=== PATIENT | female | born 1995 | race Caucasian/White ===

== ENCOUNTER 2018-02-26 15:56 | Day surgery (SDC) | payer OTHER ==
[2018-02-26 16:22] VITALS: BMI 39.0
[2018-02-26 16:23] VITALS: BP 134/78; TEMP 98.5
--- NOTE | 2018-02-26 16:37 | PDOC.FPROB ---
FMR OB H&P: HPI - History of Present Illness Chief Complaint: Elevated BP Indentification: 23 yo @ 30.1 weeks by 11.3 wk US (ZACHARY 05/06/18) History of Present Illness: Patient is a 23 year old female with a history of chronic hypertension, untreated who was sent over from her PCP's office due to concern for elevated BP. Pt denies headache and vision changes currently, but reports ONEAL unresponsive to Tylenol yesterday. She denies abdominal pain, LOF, Vaginal bleeding, and decrease in movement. BP at clinic was 157/78 and 142/91. Pt was started on Nifedipine 30 mg ER earlier in her , but self- discontinued it because she "did not like the way it made her feel." Has had a recent negative pre-e workup in clinic earlier this month, of note. Primary Care Physician: Thelma Mota DO FMR OB H&P: Current - Care : 3 Para: 2 Gestational age: 30.1 Due date: 05/06/2018 Dating Criteria: 11.3 week US - OB Labs Blood type: O RH: positive Antibody Screen: negative HIV: negative RPR: negative HepBsAg: negative Rubella: immune Quad screen: unknown Urine drug screen: not done Gonorrhea: negative Chlamydia: negative 1 hour gtt: None H&H: 13.8/40.9 FMR OB H&P: History - Past Medical History PMH: Hypertension - OB History OB History: Gestational HTN in prior - on ASA for pre-e prophylaxis. 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 Most recent pap was 12/2017. - Surgical History Sx History: Denies tobacco, alcohol, and drug use. - Family History Family History: Father - Hypertension FMR OB H&P: Medications - Current Home Medications: Medication Instructions Recorded Confirmed Type Aspirin [Aspirin Chewable Tablet] 1 tab PO MWF 02/26/18 02/26/18 History Iron Aspgly&PS Cmplx/C/Sucac 1 tab PO DAILY 02/26/18 02/26/18 History [Ferrex 150 Plus] 105/Iron/Folic AC/Dha 1 tab PO DAILY 09/25/18 09/25/18 History [Prena1 True Combo Pack] Allergies/Adverse Reactions: Allergies Allergy/AdvReac Type Severity Reaction Status Date / Time No Known Allergies Allergy Verified 02/26/18 16:16 FMR OB H&P: ROS - Review of Systems General: denies: fever/chills Eyes: denies: vision changes Cardiovascular: denies: chest pain Respiratory: denies: shortness of breath Gastrointestinal: denies: abdominal pain Genitourinary (Female): denies: vaginal bleeding Musculoskeletal: denies: swelling Neurologic: denies: headache FMR OB H&P: Vital Signs - Maternal Vital signs: Vital Signs - First Documented Temp Pulse Resp BP Pulse Ox 98.5 F 102 H 18 134/78 100 02/26/18 16:14 02/26/18 16:14 02/26/18 16:14 02/26/18 16:14 02/26/18 16:14 FMR OB H&P: Physical Exam - Physical Exam General: NAD HEENT: EOMI, grossly normal hearing Heart: RRR General: CTAB Abdomen: soft, gravid, non-tender Musculoskeletal: pulses present Neurological: cranial nerves II through XII intact, DTR +2 Skin: no rash - Pelvic Exam Estimated Weight: 6 lbs FMR OB H&P: A/P - Problem List (1) Intrauterine Current Visit: Yes Status: Acute Code(s): Z34.90 - ENCNTR FOR SUPRVSN OF NORMAL , UNSP, UNSP TRIMESTER (2) Chronic hypertension during , antepartum Current Visit: Yes Status: Acute Code(s): O10.919 - UNSP PRE-EXISTING HTN COMP , UNSP TRIMESTER Disposition: Term IUP with history of chronic hypertension. Concern for super-imposed Pre-e. -CBC, CMP, TSH, Uric acid ordered and are pending. BPP and Growth US ordered to r/o IUGR. - heart tones pending as patient currently getting US, but will monitor to ensure that strip is reactive. - Will continue to monitor BPs for a period of at least 2 hours. If BPs consistently remain < 140/90 will admit patient to L&D for observation overnight. Discussion: Date/Time: 02/26/18 3146 This H&P was discussed with Dr. English who agreed with the plan
[2018-02-26 16:43] LABS: #Lymphocytes 1.7 thou/uL (1.20-3.40); %Basophils 0.2 % (0.0-1.0); %Eosinophils 0.6 % (0.0-10.0); %Lymphocytes 19.1 % (21.0-51.0); %Monocytes 11.1 % (0.0-10.0); Hemoglobin 10.2 g/dL (12.0-16.0); Mean Corpuscular HGB CONC 33.2 g/dL (32.0-36.0); Mean Corpuscular Hemoglobin 27.2 pg (27.0-31.0); Mean Corpuscular Volume 82.1 fL (78.0-98.0); Mean Platelet Volume 7.1 fL (7.4-10.4); Platelet Count 267 thou/uL (130-400); RBC Distribution Width 14.3 % (11.5-14.5); Red Blood Cell (RBC) Count 3.73 mill/uL (4.20-5.40); White Blood Cell (WBC) Count 8.6 thou/uL (4.8-10.8)
[2018-02-26 17:05] LABS: ALT (SGPT) 9 U/L (8-55); AST (SGOT) 21 U/L (5-34); Albumin 3.2 g/dL (3.5-5.0); Alkaline Phosphatase 99 U/L (40-150); Anion Gap 11 mmol/L (10-20); BUN (Urea Nitrogen) 7 mg/dL (7.0-18.7); Bilirubin, Total 0.4 mg/dL (0.2-1.2); Calc. Creatinine Clearance 191 mL/min (70-130); Calcium 8.7 mg/dL (7.8-10.44); Carbon Dioxide 23 mmol/L (22-29); Chloride 107 mmol/L (98-107); Estimated GFR-MDRD Greater than 90; Globulin 2.8 g/dL (2.4-3.5); Glucose 80 mg/dL (70-105); Potassium 3.5 mmol/L (3.5-5.1); Sodium 137 mmol/L (136-145); Uric Acid 3.4 mg/dL (2.6-6.0)
--- NOTE | 2018-02-26 17:44 | ULT ---
ULTRASOUND BIOPHYSICAL PROFILE: 02/26/18 HISTORY: 23-year-old female in third trimester with gestational hypertension. FINDINGS: breathin tone: 2 movement: 2 Amniotic fluid volume: 2 IMPRESSION: Normal biophysical profile score of 8/8, excluding the non-stress test. erica [] POS: HORTENCIA
--- NOTE | 2018-02-26 18:00 | ULT ---
ULTRASOUND OBSTETRICAL COMPLETE: 02/26/18 HISTORY: 23-year-old female in third trimester with gestational hypertension. Concern for intrauterin e growth retardation. FINDINGS: number: Gomez. lie: Cephalic. Maternal cervix: Poorly visualized. Placenta: Posterofundal. Amniotic fluid volume: LUCIA=12.5 cm. heart rate: 114-128 bpm The following anatomy is visualized, with no evidence of anomalies: Head, stomach, cord insertion, bladder, and spine. The rest of the anatomy is not demonstrated in detail. biometry: Head circumference (HC): 29.3 cm 32w 3d Biparietal diameter (BPD): 8.0 cm 32w 0d Abdominal circumference (AC): 27.5 cm 31w 4d Femur length (FL): 5.9 cm 30w 6d Average ultrasound age (AUA): 31w 4d Estimated date of delivery (ZACHARY): 04/26/18 Last menstrual period (LMP): 07/24/2017 Gestational age by LMP: 31w 0d Estimated weight (EFW): 1774 g +/- 263 g (3 lb, 15 oz +/- 9 oz). Umbilical artery velocities: At placenta: Peak systolic 78 cm/s. End diastolic 28 cm/s. S/D = 2.8. Mid: Peak systolic 97 cm/s. End diastolic 53 cm/s. S/D = 1.9. side: Peak systolic 48 cm/s. End diastolic 14 cm/s. S/D = 3.5. IMPRESSION: 1. Live third trimester intrauterine gestation. 2. Estimated gestational age of 31 weeks, 4 days. 3. Cephalic lie. JONNY Calixto POS: HORTENCIA
--- NOTE | 2018-02-26 18:04 | ULT ---
ULTRASOUND UMBILICAL ARTERY DOPPLER DUPLEX: 02/26/18 HISTORY: 23-year-old female in third trimester of with gestational hypertension. TECHNIQUE: Color flow and spectral analysis of the umbilical artery at three locations: FINDINGS: Near placenta: Peak systolic 78 cm/s. End diastolic 28 cm/s. S/D = 2.8. Mid: Peak systolic 97 cm/s. End diastolic 53 cm/s. S/D = 1.9. Near cord insertion: Peak systolic 48 cm/s. End diastolic 14 cm/s. S/D = 3.5. IMPRESSION: Umbilical artery Doppler S/D ratios are within normal range. POS: KEREN
[2018-02-26 18:32] LABS: Amphetamine Not Detected (NotDetected); Barbiturates Screen Not Detected (NotDetected); Benzodiazepine Screen Not Detected (NotDetected); Cocaine Metabolite Screen Not Detected (NotDetected); Medtox Control Line Valid? VALID (VALID); Medtox Reader # READER 1; Methadone Not Detected (NotDetected); Methamphetamine Not Detected (NotDetected); Opiate Screen Not Detected (NotDetected); Oxycodone Screen Not Detected (NotDetected); Phencyclidine (PCP) Not Detected (NotDetected); THC/Cannabinoid Screen Not Detected (NotDetected); Tricyclic Screen Not Detected (NotDetected)
[2018-02-26 18:43] LABS: Creatinine, Urine 98.73 mg/dL (47-110)
--- NOTE | 2018-02-26 19:36 | PDOC.EVN ---
Event Note - Event Note Event Note: Patient labs are all in normal range, uric acid 3.4, p:c 0.18, BPP: 8/8 She did have elevated BP of 145/92 at 17:10 and 135/92 at 18:40. All others were normal range. Asymptomatic at this time (no ONEAL, scotoma, hyperreflexia, edema). Discussed case with Dr. Callejas, recommended she check BP at home and let us know if she has full day ONEAL. F/U in [address] Mota at [facility].
== END 2018-02-26 19:30 | disposition home or self-care (01) ==
LOC: L&D/OP 15:56
PROVIDERS: ATTEND Student in an Organized Health Care Education/Training Program
DX: O10.013 Pre-existing essential hypertension complicating pregnancy, third trimester (principal); Z3A.30 30 weeks gestation of pregnancy; Z79.82 Long term (current) use of aspirin; Z79.899 Other long term (current) drug therapy
CPT/HCPCS: 36415; 76700; 76815; 76819; 80053; 80306; 82570; 84156; 84443; 84550; 85025; 99285

== ENCOUNTER 2018-05-01 20:00 | Inpatient (IN) | payer OTHER ==
[2018-05-02] MEDS ORDERED: Promethazine HCl 25 MG/ML VIAL IM PRN (01:06)
[2018-05-02] MEDS ORDERED: Lidocaine 1% (PF) 30 ML VIAL SC PRN (01:06)
[2018-05-02] MEDS ORDERED: Ibuprofen 800 MG TAB PO PRN (01:06)
[2018-05-02] MEDS ORDERED: Ondansetron PF 4 MG/2 ML Vial IVP PRN (01:06)
[2018-05-02] MEDS ORDERED: NS w/ Oxytocin 10 units 500 ML IV SCH (01:15)
[2018-05-02 01:24] VITALS: BMI 40.6
--- NOTE | 2018-05-02 01:30 | PDOC.LDHP ---
Labor and Delivery H&P Chief complaint: scheduled induction HPI: 23YO at 41 weeks by LMP and 24.3 week sono who presented to L&D for a scheduled medically indicated induction for cHTN in . The patient was late to care and was not seen in clinic until her second trimester. She states she is a little anxious because she usually delivers fairly quickly. She denies any loss of fluid, vaginal bleeding or discharge but does endorse "losing her mucus plug" about 4-5 days ago. She said when she wiped she noticed some white/montero slimy discharge on the toilet paper. She endorses usual ached and pains in her back and sides but denies feeling any contractions. She also denies any headaches, SOB, chest pain, or LE swelling. She did report an episode of spotty vision earlier today but states that has resolved. Current gestational age (weeks): 41 Due date: 04/25/18 Dating criteria: last menstrual period, second trimester ultrasound (@ 24.3 weeks) Grav: 3 Para: 2 (2001) OB History Details: Late to care cHTN Possible h/o pre-eclampsia anemia in h/o UTI in Current complications: hypertension Abnormal US findings: No Current medications: pre-rashad vitamins, iron, other (ASA 81mg QD) Previous surgical history: other (tonsillectomy and oral surgery) Social history: other (quit smoking about 6 weeks ago, no drug or EtOH use) - Physical Exam Vital signs reviewed and normal: yes General: NAD, resting Heart: RRR Lungs: nonlabored breathing Abdomen: NTTP Extremeties: no edema FHT: category 1, variability present [place] contractions every: no contractions noted - Vaginal Exam cm dilated: 3 (3.5) Effacement: 25% (30%) Station: -3 - OB Labs Blood type: O RH: positive Antibody Screen: negative HIV: negative RPR: negative HEPSAg: negative 1 hour GCT: negative (BG 120) GBS: unknown Urine drug screen: negative Rubella: immune Additional Labs: A1c- 4.8 GC/Chlamydia - negative - Assessment L&D Assessment: medically indicated induction - Plan Plan: admit to L&D, cervical ripening, labor augmentation if indicated, informed consent obtained -: Post-term sIUP @ 41 weeks: - Will admit to L&D for medically indicated induction for chronic HTN. - Will keep a close eye on vitals with regular vital checks. - Cervical check @ 02:30 was 3.5/30/-3 - Will make NPO and start on IVFs. - Will give one dose of 25mcg of cytotec for labor augmentation. - Will continue to monitor baby closely with continuous monitoring. cHTN: - BP not in range requiring medical therapy since arrival. SBP in 130s-140s. - Will continue to monitor BP closely w/ regular vital checks. Anemia in : - Aware, will resume PO iron after delivery. <Muna Thorne - Last Filed: 05/02/18 06:16> <Marcos Roman - Last Filed: 05/02/18 08:52> Allergies/Adverse Reactions: Allergies Allergy/AdvReac Type Severity Reaction Status Date / Time No Known Allergies Allergy Verified 05/02/18 01:06 Attending Addendum - Attending Addendum Date/Time: 05/02/18 0852 I personally evaluated the patient and discussed the management with Dr. Elias. I agree with and repeated the History, Examination, Assessment and Plan documented above with any addition or exceptions noted below. <Marcos Roman - Last Filed: 05/02/18 08:52>
[2018-05-02] MEDS: Misoprostol 100 MCG TAB VAG SCH ×4 (02:24→16:38)
[2018-05-02 02:40] LABS: Hemoglobin 9.6 g/dL (12.0-16.0); Mean Corpuscular HGB CONC 33.4 g/dL (32.0-36.0); Mean Corpuscular Hemoglobin 25.4 pg (27.0-31.0); Mean Platelet Volume 8.5 fL (7.4-10.4); Platelet Count 256 thou/uL (130-400); RBC Distribution Width 15.9 % (11.5-14.5); Red Blood Cell (RBC) Count 3.75 mill/uL (4.20-5.40); White Blood Cell (WBC) Count 7.5 thou/uL (4.8-10.8)
[2018-05-02] MEDS ORDERED: Calcium Carbonate 500 MG ChewTAB PO PRN (03:09)
[2018-05-02 03:25] LABS: HBSAg Index 0.18 S/CO (0-0.99); HIV (1/2) Antibody/Antigen Non-Reactive (NonReactive); HIV 1/2 INDEX 0.17 S/CO (<1.00); Hep B Surf Ag Non-Reactive S/CO (NonReactive)
[2018-05-02 03:38] LABS: ALT (SGPT) 15 U/L (8-55); AST (SGOT) 23 U/L (5-34); Albumin 3.3 g/dL (3.5-5.0); Alkaline Phosphatase 197 U/L (40-150); Anion Gap 16 mmol/L (10-20); BUN (Urea Nitrogen) 7 mg/dL (7.0-18.7); Bilirubin, Total 0.4 mg/dL (0.2-1.2); Calc. Creatinine Clearance 256 mL/min (70-130); Calcium 8.9 mg/dL (7.8-10.44); Carbon Dioxide 21 mmol/L (22-29); Chloride 106 mmol/L (98-107); Estimated GFR-MDRD Greater than 90; Glucose 100 mg/dL (70-105); Protein, Total 6.3 g/dL (6.0-8.3); Sodium 139 mmol/L (136-145)
[2018-05-02 04:44] LABS: Syphilis Antibody Nonreactive (Nonreactive); Syphilis Antibody Index 0.05 S/CO (<1.00 Non-Reactive)
[2018-05-02] MEDS ORDERED: Butorphanol Tartrate 1 MG/ML VIAL SLOW IVP PRN ×2 (05:33→06:23)
[2018-05-02 06:08] LABS: Creatinine, Urine 78.61 mg/dL (47-110)
--- NOTE | 2018-05-02 06:08 | PDOC.LDPN ---
Labor & Delivery Progress Note - Subjective Subjective: painful contractions - Objective Abnormal vital signs: BP 157/71 & HR 83 General: breathing through contractions Dilation: 4 Effacement: 25% (40%) Station: -2 FHT: category 1, variability present [place] contractions every: 1-2 minutes Resuscitative measures: maternal IV fluids - Assessment (1) Anemia Code(s): D64.9 - ANEMIA, UNSPECIFIED Current Visit: Yes Status: Acute (2) Late care Code(s): O09.30 - SUPRVSN OF PREG W INSUFFICIENT ANTENAT CARE, UNSP TRIMESTER Current Visit: Yes Status: Acute (3) Chronic hypertension during , antepartum Code(s): O10.919 - UNSP PRE-EXISTING HTN COMP , UNSP TRIMESTER Current Visit: No Status: Acute (4) Intrauterine Code(s): Z34.90 - ENCNTR FOR SUPRVSN OF NORMAL , UNSP, UNSP TRIMESTER Current Visit: No Status: Acute Plan: continue plan of care -: Post-dates sIUP # 41 weeks by LMP & 24.6 week sono: - [place] every 1-2 minutes after 25mcg of intravaginal cytotec around ~02: 30. Tristian too frequently for medical labor augmentation at this time. - Cervical check significant for small change at 4/40/-2. - FHTs reassuring w/ a baseline HR in the 130s & variability present. - Will order 1mg of stadol Q1H PRN for pain control as patient does not desire an epidural. - Will continue to monitor closely with continuous monitoring and regular vital checks. cHTN in : - Aware, patient has had 2 severe range pressures at 160/100 & 150/100. Could be 2/2 pain as contractions have become more frequent. - Patient denies any symptoms suggestive of pre-e including headache, spotty vision, chest pain, or SOB. - CMP & platelets WNLs and urine protein:Cr 0.15 so WNLs as well. - Will continue to monitor BP closely w/ regular vital checks and assess for pre -e symptoms as mentioned above. Anemia in : - Aware, Hgb of 9.6 on admission. - Will resume Iron and . <Muna Thorne - Last Filed: 05/02/18 06:21> Attending Addendum - Attending Addendum Date/Time: 05/02/18 0853 I personally evaluated the patient and discussed the management with Dr. Elias. I agree with the History, Examination, Assessment and Plan documented above with any addition or exceptions noted below. If persistent elevations send labs and tx as appropriately for possible superimposed preE. <Marcos Roman - Last Filed: 05/02/18 08:53>
--- NOTE | 2018-05-02 08:48 | PDOC.LDPN ---
Labor & Delivery Progress Note - Subjective Subjective: painful contractions - Objective Vital signs reviewed and normal: yes General: NAD Uterine fundus: palpable contractions SVE: 5/70/-1/anterior FHT: category 1 [place] contractions every: q2 minutes - Assessment (1) Intrauterine Code(s): Z34.90 - ENCNTR FOR SUPRVSN OF NORMAL , UNSP, UNSP TRIMESTER Current Visit: No Status: Acute Comment: s/p cytotec x1; progressing well. Continue expectant management (2) Chronic hypertension during , antepartum Code(s): O10.919 - UNSP PRE-EXISTING HTN COMP , UNSP TRIMESTER Current Visit: No Status: Acute Comment: Intermittent severe range BP; Pre- E labs normal; suspect related to pain. Contonue to monitor; Will treat with labetolol if persistent
[2018-05-02] MEDS: Lactated Ringer's 1,000 ML IV SCH ×2 (09:45→12:40)
--- NOTE | 2018-05-02 11:17 | PDOC.LDPN ---
Addendum entered and electronically signed by Bart Farley DO 05/02/18 11:22: blood pressure in acceptable range, continue to monitor Original Note: Labor & Delivery Progress Note - Subjective Subjective: painful contractions - Objective Vital signs reviewed and normal: yes (d) General: NAD Uterine fundus: non tender Dilation: 6 Effacement: 50% Station: -2 FHT: category 1 (baseline 140, accelerations present, moderate variability), variability present [place] contractions every: 5 mins AROM: clear fluid - Assessment (1) Intrauterine Code(s): Z34.90 - ENCNTR FOR SUPRVSN OF NORMAL , UNSP, UNSP TRIMESTER Current Visit: No Status: Acute Comment: s/p cytotec x1 inconsistent contraction pattern. progressing well. AROM clear fluid. Continue expectant management Plan: continue plan of care
[2018-05-02] MEDS: NS / Oxytocin 40 units/1000ml 1,000 ML IV PRN ×2 (11:56→13:47)
--- NOTE | 2018-05-02 12:48 | PDOC.OPDEL ---
OB Operative/Delivery Note Delivery Dr/Surgeon: Martin [place], [place] Pre-Delivery Diagnosis: active labor Procedure/Post Delivery Dx: spontaneous vaginal delivery Weeks gestation: 41 Anesthesia: none - Findings A Sex: male - 1 min: 8 - 5 min: 9 - Additional Findings/Plan Placenta delivered: spontaneous Repaired Obstetrical Laceration: none Estimated blood loss: QBL 50 Compilations/Other Findings: This is 23 yo F @ 41wks who delivered a viable M infant at 1153 on 05/02. Following an uneventful antepartum course, a vigorous male was delivered over an intact perineum in the occipitoanterior position. Anterior Shoulder and then remainder of the body delivered. nuchal cordx1. The head was held down and mouth and nares were bulb suctioned. Cord clamped (after delayed cord clamping) and cut and cord blood collected. Placenta delivered intact (in the Junior presentation) with a 3 vessel cord noted. Fundal massage was performed and the fundus was firm. The cervix and vagina were inspected and found to be free of lacerations. went to nursery in good condition for routine care. Apgars were 8/9 at 1 & 5 minutes, respectively. Patient tolerated delivery well and went to after routine recovery/care. Post delivery plan: routine recovery <Bart Farley - Last Filed: 05/02/18 12:47> Attending Addendum - Attending Addendum Date/Time: 05/02/18 1318 I was present, assisted, and supervised the of a viable male infant over an intact perineum. Apgars 8/9. Placenta delivered spontaneously and intact. 3V cord. No epis or lacerations. QBL 50 mL. Residents: Miguelito/Martin <Carina Haines - Last Filed: 05/02/18 13:20>
[2018-05-02] MEDS ORDERED: Bisacodyl 10 MG SUPP PR PRN (13:48)
[2018-05-02] MEDS ORDERED: NS / Oxytocin 40 units/1000ml 1,000 ML IV SCH (13:48)
[2018-05-02] MEDS ORDERED: Misoprostol 200 MCG TAB VAG PRN (13:48)
[2018-05-02] MEDS ORDERED: Milk Of Magnesia 30 ML UDCUP PO PRN (13:48)
[2018-05-02] MEDS ORDERED: Adacel (T-DAP) 0.5 ML VIAL IM ONE (13:48)
[2018-05-02] MEDS ORDERED: Methylergonovine 0.2 MG TAB PO PRN (13:48)
[2018-05-02] MEDS: Ibuprofen 800 MG TAB PO SCH ×2 (14:28→21:20)
[2018-05-02] MEDS: Ferrous Sulfate 325 MG TAB PO SCH (18:01)
[2018-05-02] MEDS: Docusate Calcium (SURFAK) 240 MG CAP PO SCH (21:20)
[2018-05-03] MEDS: Ibuprofen 800 MG TAB PO SCH ×3 (05:17→21:00)
[2018-05-03 06:22] LABS: Hemoglobin 9.6 g/dL (12.0-16.0); Mean Corpuscular HGB CONC 32.1 g/dL (32.0-36.0); Mean Corpuscular Hemoglobin 24.7 pg (27.0-31.0); Mean Corpuscular Volume 76.8 fL (78.0-98.0); Mean Platelet Volume 8.2 fL (7.4-10.4); Platelet Count 249 thou/uL (130-400); RBC Distribution Width 15.6 % (11.5-14.5); Red Blood Cell (RBC) Count 3.91 mill/uL (4.20-5.40); White Blood Cell (WBC) Count 9.9 thou/uL (4.8-10.8)
--- NOTE | 2018-05-03 06:42 | PDOC.PP ---
Post Progress Note Post Day #: 1 Subjective: Ms. Martin is resting comfortably in bed, reports minimal pain and bleeding. desires to go home today. PO intake tolerated: yes Flatus: yes Ambulation: yes Vital Signs (12 hours) Temp Pulse Resp BP BP Pulse Ox 05/03/18 04:40 97.2 F L 73 20 141/97 H 149/102 H 05/03/18 00:00 97.8 F 87 18 134/81 05/02/18 21:28 82 140/94 H 05/02/18 20:00 97.2 F L 62 16 157/98 H 99 Weight Weight 97.522 kg - Physical Examination General: NAD Cardiovascular: no m/r/g, RRR Respiratory: clear to auscultation bilaterally Neurological: no gross focal deficits Result Diagrams: 05/03/18 06:00 05/02/18 02:00 Additional Labs: Post Labs Blood Type O POSITIVE 05/02/18 02:00 Hep Bs Antigen Non-Reactive S/CO (NonReactive) 05/02/18 02:00 (1) Intrauterine Code(s): Z34.90 - ENCNTR FOR SUPRVSN OF NORMAL , UNSP, UNSP TRIMESTER Status: Acute - Assessment/Plan s/p IUP, [id number] @ 41 wks 05/02/18 1153 - GBS unknown, limited care - atraumatic delivery, viable boy - Hb stable, continue PNV - recovering appropriately, continue to encourage - Continue routine care Dispo: unknown GBS, 48hr monitor preferred, discussion about DC today <Bart Farley - Last Filed: 05/03/18 08:32> Vital Signs (12 hours) Temp Pulse Resp BP BP Pulse Ox 05/03/18 08:16 98.3 F 91 20 146/86 H 99 05/03/18 04:40 97.2 F L 73 20 141/97 H 149/102 H 05/03/18 00:00 97.8 F 87 18 134/81 Weight Weight 97.522 kg Result Diagrams: 05/03/18 06:00 05/02/18 02:00 Additional Labs: Post Labs Blood Type O POSITIVE 05/02/18 02:00 Hep Bs Antigen Non-Reactive S/CO (NonReactive) 05/02/18 02:00 (1) Intrauterine Code(s): Z34.90 - ENCNTR FOR SUPRVSN OF NORMAL , UNSP, UNSP TRIMESTER Status: Acute (2) Chronic hypertension during , antepartum Code(s): O10.919 - UNSP PRE-EXISTING HTN COMP , UNSP TRIMESTER Status : Acute Comment: Intermittent severe range BP; Pre-E labs normal; suspect related to pain. Contonue to monitor; Will treat with labetolol if persistent <Carina Haines - Last Filed: 05/03/18 10:30> Attending Addendum - Attending Addendum Date/Time: 05/03/18 1024 I personally evaluated the patient and discussed the management with Dr. Farley I agree with the History, Examination, Assessment and Plan documented above with any addition or exceptions noted below- Patient without complaints. Ambulating/voiding. Afebrile VSS. A/P: 1) PPD#1 s/p - continue routine care. 2) cHTN- continue to monitor BP; IF persistent start meds this afternoon. <Carina Haines - Last Filed: 05/03/18 10:30>
[2018-05-03] MEDS: Docusate Calcium (SURFAK) 240 MG CAP PO SCH ×2 (09:04→21:00)
[2018-05-03] MEDS: Ferrous Sulfate 325 MG TAB PO SCH ×2 (09:04→18:02)
[2018-05-03] MEDS: Prenatal Vitamin 1 TAB PO SCH (09:04)
[2018-05-04] MEDS: Ibuprofen 800 MG TAB PO SCH (05:55)
--- NOTE | 2018-05-04 06:19 | PDOC.PP ---
Post Progress Note Post Day #: 2 Subjective: mom is resting comfortably in bed, well, minimal bleeding. denies SOB, CP, ONEAL, scomata PO intake tolerated: yes Flatus: yes Ambulation: yes Vital Signs (12 hours) Temp Pulse Resp BP BP Pulse Ox 05/04/18 05:45 98.8 F 76 18 136/85 05/04/18 00:00 98.0 F 83 18 138/93 H 05/03/18 20:00 98.0 F 78 16 148/87 H 99 Weight Weight 97.522 kg - Physical Examination General: NAD Cardiovascular: no m/r/g, RRR Respiratory: clear to auscultation bilaterally Abdominal: no distention, appropriately TTP Neurological: no gross focal deficits Result Diagrams: 05/03/18 06:00 05/02/18 02:00 Additional Labs: Post Labs Blood Type O POSITIVE 05/02/18 02:00 Hep Bs Antigen Non-Reactive S/CO (NonReactive) 05/02/18 02:00 (1) Intrauterine Code(s): Z34.90 - ENCNTR FOR SUPRVSN OF NORMAL , UNSP, UNSP TRIMESTER Status: Acute - Assessment/Plan s/p IUP, [id number] @ 41 wks 05/02/18 1153 - GBS unknown, limited care - atraumatic delivery, viable boy - Hb stable, continue PNV - recovering appropriately, continue to encourage - Continue routine care cHTN - continue to monitor BPs - consider starting nifedipine 20 XR if pressures remain elevated Dispo: DC home today <Bart Farley - Last Filed: 05/04/18 07:49> Vital Signs (12 hours) Temp Pulse Resp BP Pulse Ox 05/04/18 12:02 97.8 F 86 18 116/62 05/04/18 09:00 97.7 F 78 14 165/93 H 98 05/04/18 05:45 98.8 F 76 18 136/85 Weight Weight 97.522 kg Result Diagrams: 05/03/18 06:00 05/02/18 02:00 Additional Labs: Post Labs Blood Type O POSITIVE 05/02/18 02:00 Hep Bs Antigen Non-Reactive S/CO (NonReactive) 05/02/18 02:00 <Madina Nichole - Last Filed: 05/04/18 13:53> Attending Addendum - Attending Addendum Date/Time: 05/04/18 5428 I personally evaluated the patient and discussed the management with Dr. Farley I agree with the History, Examination, Assessment and Plan documented above with any addition or exceptions noted below. Stable PPD #2 Meeting appropriate milestones BP normotensive or mild range and pt is asymptomatic Followup in 3 days for BP check Stable for d/c to home today <Madina Nichole - Last Filed: 05/04/18 13:53>
[2018-05-04] MEDS: Ferrous Sulfate 325 MG TAB PO SCH (09:02)
[2018-05-04] MEDS: Docusate Calcium (SURFAK) 240 MG CAP PO SCH (09:02)
[2018-05-04] MEDS: Prenatal Vitamin 1 TAB PO SCH (09:02)
[2018-05-04 12:03] VITALS: BP 116/62; TEMP 97.8
== END 2018-05-04 13:00 | disposition home or self-care (01) | DRG 807 ==
LOC: L&D 23:03 → 3SW 05-02 16:19
PROVIDERS: ADMIT Emergency Medicine; ATTEND Emergency Medicine
PROC: 10E0XZZ Delivery of Products of Conception, External Approach (ICD-10-PCS; principal; 2018-05-02)
DX: O10.02 Pre-existing essential hypertension complicating childbirth (principal); Z37.0 Single live birth; O99.013 Anemia complicating pregnancy, third trimester; D64.9 Anemia, unspecified; Z3A.41 41 weeks gestation of pregnancy; O69.81X0 Labor and delivery complicated by cord around neck, without compression, not applicable or unspecified
CPT/HCPCS: 36415; 80053; 82570; 84156; 85027; 86780; 86850; 86900; 86901; 87340; 87389; J0595